=== PATIENT | female | born 1940 | race Caucasian/White ===

== ENCOUNTER 2016-11-11 08:33 | Inpatient (IN) | payer OTHER, BC ==
[~2016-11-11] VITALS: Ht 160 cm; Wt 68.7 kg
[~2016-11-11 08:33] MED LIST: AMBIEN5 MG PO; ASPIR 8181 M1 PO; ATIVAN0.5 MG PO; BENADRYL25 MG PO; BENTYL20 MG PO; BIOTIN10000 MC1 PO; CARAFATE100 MG/ML PO; CARDIZEM60 MG PO; DIGITEK125 MC2 PO; EPIPEN ADU0.3 MG/0.3 IM; LEVOTHYROXINE75 MCG PO; LOMOTIL TABLET1 EACH PO; OMEPRAZOLE20 MG PO; TRAMADOL HCL50 MG PO; VITAMIN D22000 UNIT PO; VITAMIN D31000 UNIT PO
[2016-11-11 09:18] LABS: EOSINOPHIL (%) 0.4 % (0-5); EOSINOPHIL COUNT 0.1 K/uL (0-0.3); HEMATOCRIT 42.6 % (36.0-46.0); IMMATURE GRANULOCYTE (%) 0.5 % (0.0-0.7); IMMATURE GRANULOCYTE COUNT 0.1 K/uL; INSTRUMENT ABS NEUTROPHIL CT 11.1 K/uL; LYMPHOCYTE COUNT 1.4 K/uL (1.0-2.8); MCH 29.6 PG (29.0-34.0); MCHC 32.9 G/DL (30.0-36.0); MCV 90.1 FL (83-99); MEAN PLAT.VOLUME 9.3 uM^3 (9.5-12.4); MONOCYTE (%) 7.9 % (3-12); MONOCYTE COUNT 1.1 K/uL (0-0.8); NEUTROPHIL (%) 81.1 % (45-76); NEUTROPHIL COUNT 11.1 K/uL (1.8-6.4); PLATELET COUNT 224 K/uL (156-360); RBC DIS.WIDTH-CV 13.2 % (11.8-14.6); RBC DIS.WIDTH-SD 43.9 % (39-53); RED BLOOD COUNT 4.73 M/uL (3.80-5.20); WHITE BLOOD COUNT 13.7 K/uL (4.1-10.2)
[2016-11-11 09:32] LABS: CHLORIDE 102 mEq/L (99-109); POTASSIUM 4.5 mEq/L (3.7-5.4); SODIUM 140 mEq/L (136-147)
[2016-11-11 09:34] LABS: GLUCOSE 140 mg/dL (70-99)
[2016-11-11 09:35] LABS: ANION GAP 12 MEQ/L (2-14)
[2016-11-11 09:36] LABS: TOTAL BILIRUBIN 0.6 mg/dL (0.0-1.0)
[2016-11-11 09:37] LABS: ALKALINE PHOSPHATASE 67 IU/L (3-129)
[2016-11-11 09:38] LABS: GFR ESTIMATE (CALCULATED) > 59 mL/min/
[2016-11-11 09:39] LABS: UREA NITROGEN (BUN) 14 mg/dL (9-23)
[2016-11-11 09:42] LABS: TROP-I INTERPRETATION NEGATIVE; TROPONIN-I < 0.01 ng/mL (0.0-0.30)
[2016-11-11 09:54] LABS: PROTHROMBIN TIME 10.6 (9.2-11.2)
[2016-11-11 09:55] LABS: PTT 19.7 (25-32)
[2016-11-11 16:28] LABS: TROP-I INTERPRETATION NEGATIVE; TROPONIN-I < 0.01 ng/mL (0.0-0.30)
[2016-11-11 16:45] LABS: CREATINE KINASE 32 IU/L (1-294); TOTAL CK 32 IU/L (1-294)
[2016-11-11 16:52] LABS: CK-MB 1.2 ng/mL (0.0-4.9)
[2016-11-11 17:04] VITALS: BP 122/86
[2016-11-11 20:26] VITALS: BP 97/59
[2016-11-11 22:02] LABS: TROP-I INTERPRETATION NEGATIVE; TROPONIN-I < 0.01 ng/mL (0.0-0.30)
[2016-11-11 23:58] VITALS: BP 149/89
[2016-11-12] VITALS (10 sets, daily range): BP systolic 111–148; BP diastolic 64–88
[2016-11-12 08:38] LABS: ANION GAP 6 MEQ/L (2-14); CHLORIDE 105 MEQ/L (99-109); GFR ESTIMATE (CALCULATED) > 59 mL/min/; POTASSIUM 4.1 MEQ/L (3.7-5.4); SAMPLE HEMOLYSIS CHECK 0; SAMPLE ICTERIC CHECK 0; SAMPLE LIPEMIA CHECK 0; SODIUM 142 MEQ/L (136-147); UREA NITROGEN (BUN) 6 mg/dL (9-23)
[2016-11-12 08:39] LABS: GLUCOSE 96 mg/dL (70-99); HEMATOCRIT 37.9 % (36.0-46.0); MCH 30.1 PG (29.0-34.0); MCV 91.3 FL (83-99); MEAN PLAT.VOLUME 9.9 uM^3 (9.5-12.4); PLATELET COUNT 210 K/uL (156-360); RBC DIS.WIDTH-CV 13.7 % (11.8-14.6); RBC DIS.WIDTH-SD 46.4 % (39-53); RED BLOOD COUNT 4.15 M/uL (3.80-5.20)
[2016-11-12 08:43] LABS: WHITE BLOOD COUNT 7.8 K/uL (4.1-10.2)
[2016-11-13] VITALS: BP 134/88
[2016-11-13 05:22] VITALS: BP 162/116
[2016-11-13 05:25] VITALS: BP 142/98
[2016-11-13 07:43] VITALS: BP 102/64
[2016-11-13 07:50] LABS: EOSINOPHIL COUNT 0.1 K/uL (0-0.3); HEMATOCRIT 40.3 % (36.0-46.0); IMMATURE GRANULOCYTE (%) 0.3 % (0.0-0.7); INSTRUMENT ABS NEUTROPHIL CT 4.5 K/uL; LYMPHOCYTE COUNT 2.4 K/uL (1.0-2.8); MCH 29.5 PG (29.0-34.0); MCHC 32.5 G/DL (30.0-36.0); MCV 90.8 FL (83-99); MEAN PLAT.VOLUME 9.7 uM^3 (9.5-12.4); MONOCYTE (%) 10.6 % (3-12); MONOCYTE COUNT 0.8 K/uL (0-0.8); NEUTROPHIL (%) 57.7 % (45-76); NEUTROPHIL COUNT 4.5 K/uL (1.8-6.4); PLATELET COUNT 221 K/uL (156-360); RBC DIS.WIDTH-CV 13.5 % (11.8-14.6); RBC DIS.WIDTH-SD 45.7 % (39-53); RED BLOOD COUNT 4.44 M/uL (3.80-5.20); WHITE BLOOD COUNT 7.8 K/uL (4.1-10.2)
[2016-11-13 08:23] LABS: ANION GAP 7 MEQ/L (2-14); CHLORIDE 102 MEQ/L (99-109); GFR ESTIMATE (CALCULATED) > 59 mL/min/; GLUCOSE 103 mg/dL (70-99); POTASSIUM 4.3 MEQ/L (3.7-5.4); SAMPLE HEMOLYSIS CHECK 0; SAMPLE ICTERIC CHECK 0; SAMPLE LIPEMIA CHECK 0; SODIUM 141 MEQ/L (136-147); UREA NITROGEN (BUN) 10 mg/dL (9-23)
[2016-11-13 11:04] VITALS: BP 121/76
[2016-11-13] MEDS ORDERED: CARDIZEM90 MG PO (12:24)
[2016-11-13] MEDS ORDERED: ELIQUIS5 MG PO (12:24)
== END 2016-11-13 14:07 | disposition home or self-care (01) | DRG 309 ==
LOC: EME 08:33 → EDOF 13:54 → 4EAST 13:54 → EDOF 15:17 → 4EAST 16:36
PROVIDERS: Emergency Medicine; Internal Medicine
DX: I47.1 Supraventricular tachycardia (principal); I48.91 Unspecified atrial fibrillation; K29.70 Gastritis, unspecified, without bleeding; J81.1 Chronic pulmonary edema; E03.9 Hypothyroidism, unspecified; I50.9 Heart failure, unspecified; I11.0 Hypertensive heart disease with heart failure; R07.9 Chest pain, unspecified; R91.8 Other nonspecific abnormal finding of lung field; F41.9 Anxiety disorder, unspecified; F32.9 Major depressive disorder, single episode, unspecified; K21.9 Gastro-esophageal reflux disease without esophagitis; I44.7 Left bundle-branch block, unspecified; R07.81 Pleurodynia; Z87.891 Personal history of nicotine dependence
CPT/HCPCS: 71010; 71275; 76705; 80048; 80053; 82550 91; 82553; 83735; 83880; 84443; 84484; 85025; 85027; 85610; 85730; 93005; 93306; 99281; 99285; J1650; J2270; J2405; J3010; J7030; J7040; J7050